=== PATIENT | female | born 1975 | race Caucasian/White ===

== ENCOUNTER 2017-12-12 11:51 | Day surgery (SDC) | payer OTHER ==
[2017-12-12] MEDS: NS 1,000 ML IV (13:48)
[2017-12-12] MEDS ORDERED: fentaNYL 100 MCG/2 ML INJECTION (J3010) As Ordered (14:03)
[2017-12-12] MEDS ORDERED: PROPOFOL 200 MG/20 ML VIAL As Ordered ×4 (15:23→15:26)
== END 2017-12-12 16:20 | disposition home or self-care (01) ==
LOC: M OPP 11:51
DX: K21.9 Gastro-esophageal reflux disease without esophagitis (principal); K29.70 Gastritis, unspecified, without bleeding; Z98.84 Bariatric surgery status; K44.9 Diaphragmatic hernia without obstruction or gangrene; R12 Heartburn; M19.90 Unspecified osteoarthritis, unspecified site; Z88.8 Allergy status to other drugs, medicaments and biological substances; Z88.2 Allergy status to sulfonamides; Z79.899 Other long term (current) drug therapy
CPT/HCPCS: 91035

== ENCOUNTER → 2018-03-03 | Outpatient (CLI) | payer OTHER ==
[~2018-03-03] MED LIST: ESTR2TAB2 PO; NAPR-885 PO; PANT40TA3 PO; VITA100066 PO
[2018-03-03 10:50] LABS: INR 1.1; PROTHROMBIN TIME 14.3 SECONDS (12.1-14.4)
== END ==
LOC: M LAB 09:06
PROVIDERS: ATTEND Internal Medicine Rheumatology
DX: Z51.81 Encounter for therapeutic drug level monitoring (principal); D68.61 Antiphospholipid syndrome; Z79.01 Long term (current) use of anticoagulants

== ENCOUNTER → 2018-03-06 | Outpatient (CLI) | payer OTHER ==
[2018-03-06 15:49] LABS: INR 1.57
== END ==
LOC: M LAB 07:19
PROVIDERS: ATTEND Internal Medicine Rheumatology
DX: Z51.81 Encounter for therapeutic drug level monitoring (principal); Z79.01 Long term (current) use of anticoagulants; D68.61 Antiphospholipid syndrome

== ENCOUNTER → 2018-03-10 | Outpatient (CLI) | payer OTHER ==
[2018-03-10 08:00] LABS: INR 1.53; PROTHROMBIN TIME 18.6 SECONDS (12.1-14.4)
== END ==
LOC: M LAB 07:22
PROVIDERS: ATTEND Internal Medicine Rheumatology
DX: Z51.81 Encounter for therapeutic drug level monitoring (principal); Z79.899 Other long term (current) drug therapy

== ENCOUNTER → 2018-03-13 | Outpatient (CLI) | payer OTHER ==
[2018-03-13 09:17] LABS: INR 2.29; PROTHROMBIN TIME 25.7 SECONDS (12.1-14.4)
== END ==
LOC: M LAB 07:35
PROVIDERS: ATTEND Internal Medicine Rheumatology
DX: D68.61 Antiphospholipid syndrome (principal)

== ENCOUNTER → 2018-03-19 | Outpatient (CLI) | payer OTHER ==
[2018-03-19 11:08] LABS: INR 2.54; PROTHROMBIN TIME 27.9 SECONDS (12.1-14.4)
== END ==
LOC: M LAB 10:32
PROVIDERS: ATTEND Internal Medicine Rheumatology
DX: Z51.81 Encounter for therapeutic drug level monitoring (principal); Z79.01 Long term (current) use of anticoagulants

== ENCOUNTER → 2018-03-26 | Outpatient (CLI) | payer OTHER ==
[2018-03-26 08:19] LABS: INR 2.42; PROTHROMBIN TIME 26.8 SECONDS (12.1-14.4)
== END ==
LOC: M LAB 07:43
PROVIDERS: ATTEND Internal Medicine Rheumatology
DX: D68.61 Antiphospholipid syndrome (principal)

== ENCOUNTER → 2018-04-23 | Outpatient (CLI) | payer OTHER ==
[2018-04-23 08:12] LABS: INR 2.87; PROTHROMBIN TIME 30.7 SECONDS (12.1-14.4)
== END ==
LOC: M LAB 07:34
PROVIDERS: ATTEND Internal Medicine Rheumatology
DX: Z51.81 Encounter for therapeutic drug level monitoring (principal); Z79.01 Long term (current) use of anticoagulants; D68.61 Antiphospholipid syndrome

== ENCOUNTER → 2018-05-14 | Outpatient (CLI) | payer OTHER ==
[2018-05-14 18:06] LABS: INR 2.11; PROTHROMBIN TIME 24.1 SECONDS (12.1-14.4)
== END ==
LOC: M LAB 16:42
PROVIDERS: ATTEND Internal Medicine Rheumatology
DX: Z51.81 Encounter for therapeutic drug level monitoring (principal); Z79.01 Long term (current) use of anticoagulants; D68.61 Antiphospholipid syndrome

== ENCOUNTER → 2018-06-08 | Outpatient (CLI) | payer OTHER ==
[2018-06-08 17:35] LABS: INR 2.15; PROTHROMBIN TIME 24.4 SECONDS (12.1-14.4)
== END ==
LOC: M LAB 16:29
PROVIDERS: ATTEND Internal Medicine Rheumatology
DX: D68.61 Antiphospholipid syndrome (principal); Z51.81 Encounter for therapeutic drug level monitoring; Z79.01 Long term (current) use of anticoagulants

== ENCOUNTER → 2018-07-22 | Outpatient (CLI) | payer OTHER ==
[2018-07-22 18:30] LABS: INR 2.85; PROTHROMBIN TIME 30.5 SECONDS (12.1-14.4)
== END ==
LOC: M LAB 17:31
PROVIDERS: ATTEND Internal Medicine Rheumatology
DX: D68.61 Antiphospholipid syndrome (principal); Z51.81 Encounter for therapeutic drug level monitoring; Z79.01 Long term (current) use of anticoagulants

== ENCOUNTER → 2018-09-11 | Outpatient (CLI) | payer OTHER ==
[2018-09-11 08:36] LABS: INR 1.82; PROTHROMBIN TIME 20.8 SECONDS (11.8-14.0)
== END ==
LOC: M LAB 07:26
PROVIDERS: ATTEND Internal Medicine Rheumatology
DX: Z51.81 Encounter for therapeutic drug level monitoring (principal); Z79.01 Long term (current) use of anticoagulants

== ENCOUNTER → 2018-10-07 | Outpatient (CLI) | payer OTHER ==
[2018-10-07 08:14] LABS: INR 2.98; PROTHROMBIN TIME 30.9 SECONDS (11.8-14.0)
== END ==
LOC: M LAB 07:23
PROVIDERS: ATTEND Internal Medicine Rheumatology
DX: Z51.81 Encounter for therapeutic drug level monitoring (principal); Z79.01 Long term (current) use of anticoagulants

== ENCOUNTER → 2018-11-11 | Outpatient (CLI) | payer OTHER ==
[2018-11-11 15:20] LABS: INR 4.34; PROTHROMBIN TIME 41.7 SECONDS (11.8-14.0)
== END ==
LOC: M LAB 14:16
PROVIDERS: ATTEND Internal Medicine Rheumatology
DX: Z79.899 Other long term (current) drug therapy (principal)

== ENCOUNTER → 2018-11-18 | Outpatient (CLI) | payer OTHER ==
[2018-11-18 17:04] LABS: INR 1.83; PROTHROMBIN TIME 20.9 SECONDS (11.8-14.0)
== END ==
LOC: M LAB 16:24
PROVIDERS: ATTEND Internal Medicine Rheumatology
DX: D68.61 Antiphospholipid syndrome (principal); Z51.81 Encounter for therapeutic drug level monitoring; Z79.01 Long term (current) use of anticoagulants

== ENCOUNTER → 2018-11-25 | Outpatient (CLI) | payer OTHER ==
[2018-11-25 17:51] LABS: INR 2.71; PROTHROMBIN TIME 28.6 SECONDS (11.8-14.0)
== END ==
LOC: M LAB 16:35
PROVIDERS: ATTEND Internal Medicine Rheumatology
DX: D68.61 Antiphospholipid syndrome (principal)

== ENCOUNTER → 2018-12-28 | Outpatient (CLI) | payer OTHER ==
[2018-12-28 18:34] LABS: INR 1.38; PROTHROMBIN TIME 16.7 SECONDS (11.8-14.0)
== END ==
LOC: M LAB 17:08
PROVIDERS: ATTEND Internal Medicine Rheumatology
DX: Z79.01 Long term (current) use of anticoagulants (principal)

== ENCOUNTER → 2019-01-04 | Outpatient (CLI) | payer OTHER ==
[2019-01-04 17:23] LABS: INR 1.94; PROTHROMBIN TIME 21.9 SECONDS (11.8-14.0)
== END ==
LOC: M LAB 16:35
PROVIDERS: ATTEND Internal Medicine Rheumatology
DX: Z79.899 Other long term (current) drug therapy (principal)

== ENCOUNTER → 2019-01-08 | Outpatient (CLI) | payer OTHER ==
--- NOTE | 2019-01-09 08:38 | REP ---
HISTORY: Cough. COMPARISON: None. There is a Mediport device in place. The tip is in the superior vena cava. There is a superior vena cava. There is a subtle patchy opacity in the right upper lobe. The pleural angles are sharp and the heart is not enlarged. The osseous structures are normal. IMPRESSION: Right upper lobe pneumonia. I have no priors for comparison. Electronically Signed by Abimael Rutherford DO 01/09/2019 09:23 A
== END ==
LOC: M LRY 20:01
PROVIDERS: ATTEND Physician Assistant
DX: R05 Cough (principal)
CPT/HCPCS: 71046; G0463

== ENCOUNTER → 2019-01-26 | Outpatient (CLI) | payer OTHER ==
[2019-01-26 13:32] LABS: INR 3.49; PROTHROMBIN TIME 35.1 SECONDS (11.8-14.0)
== END ==
LOC: M LAB 12:38
PROVIDERS: ATTEND Internal Medicine Rheumatology
DX: Z79.899 Other long term (current) drug therapy (principal)

== ENCOUNTER → 2019-02-16 | Outpatient (CLI) | payer OTHER ==
[2019-02-16 07:23] LABS: INR 2.68; PROTHROMBIN TIME 28.4 SECONDS (11.8-14.0)
== END ==
LOC: M LAB 06:51
PROVIDERS: ATTEND Internal Medicine Rheumatology
DX: Z51.81 Encounter for therapeutic drug level monitoring (principal); Z79.01 Long term (current) use of anticoagulants

== ENCOUNTER 2019-03-17 07:19 | Outpatient (CLI) | payer OTHER ==
[~2019-03-17] VITALS: Ht 175.3 cm; Wt 116.4 kg
[2019-03-17] MEDS ORDERED: COUM1TAB17 PO (07:40)
[2019-03-17] MEDS ORDERED: INFL10VL IV (07:40)
[2019-03-17] MEDS ORDERED: PLAQ200T4 PO (07:40)
[2019-03-17] MEDS ORDERED: COUM10TA PO (07:40)
[2019-03-17 08:00] VITALS: BP 151/68
[2019-03-17 08:25] LABS: INR 3.39; PROTHROMBIN TIME 34.2 SECONDS (11.8-14.0)
[2019-03-17] MEDS ORDERED: SODIUM CHLORIDE 0.9% INJ 10 ML SYR IV SCH (09:00)
== END 2019-03-17 08:00 | disposition home or self-care (01) ==
LOC: M INFU 07:19
PROVIDERS: ATTEND Internal Medicine Rheumatology
DX: Z51.81 Encounter for therapeutic drug level monitoring (principal); Z79.01 Long term (current) use of anticoagulants
CPT/HCPCS: 36591; 85610; J1642

== ENCOUNTER 2019-05-04 07:25 | Outpatient (CLI) | payer OTHER ==
[~2019-05-04] VITALS: Ht 175.3 cm; Wt 116.0 kg
[~2019-05-04 07:25] MED LIST changes: +COUM10TA PO; +COUM1TAB17 PO; +INFL10VL IV; +PLAQ200T4 PO
[2019-05-04 07:37] VITALS: BP 152/90
[2019-05-04 08:19] LABS: INR 2.54; PROTHROMBIN TIME 27.2 SECONDS (11.8-14.0)
[2019-05-04] MEDS ORDERED: SODIUM CHLORIDE 0.9% INJ 10 ML SYR IV SCH (09:00)
== END 2019-05-04 08:00 | disposition home or self-care (01) ==
LOC: M INFU 07:25
PROVIDERS: ATTEND Internal Medicine Rheumatology
DX: Z51.81 Encounter for therapeutic drug level monitoring (principal); Z79.01 Long term (current) use of anticoagulants; Z88.2 Allergy status to sulfonamides; Z88.8 Allergy status to other drugs, medicaments and biological substances
CPT/HCPCS: 36591; 85610; 96523; J1642

== ENCOUNTER 2019-05-28 08:26 | Outpatient (CLI) | payer OTHER ==
[~2019-05-28] VITALS: Ht 175.3 cm; Wt 116.4 kg
[~2019-05-28 08:26] MED LIST changes: +SODIUM CHLORIDE 0.9% INJ 10 ML SYR IV ONE; +SODIUM CHLORIDE 0.9% INJ 10 ML SYR IV PRN
[2019-05-28 08:30] VITALS: BP 119/62
[2019-05-28 09:18] LABS: INR 2.66; PROTHROMBIN TIME 28.2 SECONDS (11.8-14.0)
== END 2019-05-28 08:50 | disposition home or self-care (01) ==
LOC: M INFU 08:26
PROVIDERS: ATTEND Internal Medicine Rheumatology
DX: D68.61 Antiphospholipid syndrome (principal); Z79.01 Long term (current) use of anticoagulants; Z51.81 Encounter for therapeutic drug level monitoring
CPT/HCPCS: 36591; 85610; 96523; J1642

== ENCOUNTER 2019-06-14 13:44 | Outpatient (CLI) | payer OTHER ==
[~2019-06-14] VITALS: Ht 175.3 cm; Wt 116.4 kg
[~2019-06-14 13:44] MED LIST changes: -SODIUM CHLORIDE 0.9% INJ 10 ML SYR IV ONE; -SODIUM CHLORIDE 0.9% INJ 10 ML SYR IV PRN; +SODIUM CHLORIDE 0.9% INJ 10 ML SYR IV SCH
[2019-06-14 13:50] VITALS: BP 160/88
[2019-06-14 14:38] LABS: INR 2.23; PROTHROMBIN TIME 24.5 SECONDS (11.8-14.0)
== END 2019-06-14 14:20 | disposition home or self-care (01) ==
LOC: M INFU 13:44
PROVIDERS: ATTEND Internal Medicine Rheumatology
DX: Z79.01 Long term (current) use of anticoagulants (principal); D68.61 Antiphospholipid syndrome
CPT/HCPCS: 36591; 85610; 96523; J1642

== ENCOUNTER 2019-07-14 07:27 | Outpatient (CLI) | payer OTHER ==
[~2019-07-14] VITALS: Ht 162.6 cm; Wt 116.4 kg
[~2019-07-14 07:27] MED LIST changes: -SODIUM CHLORIDE 0.9% INJ 10 ML SYR IV SCH
[2019-07-14] MEDS ORDERED: SODIUM CHLORIDE 0.9% INJ 10 ML SYR IV PRN (07:30)
[2019-07-14 07:37] VITALS: BP 134/80
[2019-07-14 08:16] LABS: INR 1.27; PROTHROMBIN TIME 15.6 SECONDS (11.8-14.0)
[2019-07-14] MEDS ORDERED: SODIUM CHLORIDE 0.9% INJ 10 ML SYR IV SCH (09:00)
== END 2019-07-14 07:50 | disposition home or self-care (01) ==
LOC: M INFU 07:27
PROVIDERS: ATTEND Internal Medicine Rheumatology
DX: D68.61 Antiphospholipid syndrome (principal); Z79.01 Long term (current) use of anticoagulants
CPT/HCPCS: 36591; 85610; J1642

== ENCOUNTER 2019-07-27 07:15 | Outpatient (CLI) | payer OTHER ==
[~2019-07-27] VITALS: Ht 162.6 cm; Wt 116.4 kg
[2019-07-27 07:28] VITALS: BP 114/86
[2019-07-27 08:18] LABS: INR 2.48; PROTHROMBIN TIME 26.7 SECONDS (11.8-14.0)
[2019-07-27] MEDS ORDERED: SODIUM CHLORIDE 0.9% INJ 10 ML SYR IV SCH (09:00)
== END 2019-07-27 07:45 | disposition home or self-care (01) ==
LOC: M INFU 07:15
PROVIDERS: ATTEND Internal Medicine Rheumatology
DX: Z79.01 Long term (current) use of anticoagulants (principal); D68.61 Antiphospholipid syndrome

== ENCOUNTER 2019-08-31 07:17 | Outpatient (CLI) | payer OTHER ==
[~2019-08-31] VITALS: Ht 162.6 cm; Wt 116.4 kg
[~2019-08-31 07:17] MED LIST changes: +PANT40TA29 PO; -PANT40TA3 PO
[2019-08-31] MEDS ORDERED: SODIUM CHLORIDE 0.9% INJ 10 ML SYR IV PRN (07:30)
[2019-08-31 08:18] VITALS: BP 123/72
[2019-08-31 08:33] LABS: INR 2.44; PROTHROMBIN TIME 26.3 SECONDS (11.8-14.0)
[2019-08-31] MEDS ORDERED: SODIUM CHLORIDE 0.9% INJ 10 ML SYR IV SCH (09:00)
== END 2019-08-31 08:00 | disposition home or self-care (01) ==
LOC: M INFU 07:17
PROVIDERS: ATTEND Internal Medicine Rheumatology
DX: D68.61 Antiphospholipid syndrome (principal); Z51.81 Encounter for therapeutic drug level monitoring; Z79.01 Long term (current) use of anticoagulants
CPT/HCPCS: 36591; 85610; J1642

== ENCOUNTER 2019-10-07 16:31 | Outpatient (CLI) | payer OTHER ==
[~2019-10-07] VITALS: Ht 162.6 cm; Wt 116.0 kg
[2019-10-07 16:35] VITALS: BP 168/86
[2019-10-07 18:14] LABS: INR 2.97; PROTHROMBIN TIME 31.6 SECONDS (11.8-14.0)
[2019-10-08] MEDS ORDERED: SODIUM CHLORIDE 0.9% INJ 10 ML SYR IV SCH (09:00)
== END 2019-10-07 17:10 | disposition home or self-care (01) ==
LOC: M INFU 16:31
PROVIDERS: ATTEND Internal Medicine Rheumatology
DX: D68.61 Antiphospholipid syndrome (principal); Z51.81 Encounter for therapeutic drug level monitoring; Z79.01 Long term (current) use of anticoagulants

== ENCOUNTER 2019-10-21 15:20 | Outpatient (CLI) | payer OTHER ==
[~2019-10-21] VITALS: Ht 162.6 cm; Wt 116.4 kg
[~2019-10-21 15:20] MED LIST changes: +SODIUM CHLORIDE 0.9% INJ 10 ML SYR IV PRN; +SODIUM CHLORIDE 0.9% INJ 10 ML SYR IV SCH
[2019-10-21 15:28] VITALS: BP 157/74
[2019-10-21 16:58] LABS: INR 2.26; PROTHROMBIN TIME 25.5 SECONDS (11.8-14.0)
== END 2019-10-21 16:25 | disposition home or self-care (01) ==
LOC: M INFU 15:20
PROVIDERS: ATTEND Internal Medicine Rheumatology
DX: D68.61 Antiphospholipid syndrome (principal); Z79.01 Long term (current) use of anticoagulants; Z51.81 Encounter for therapeutic drug level monitoring

== ENCOUNTER → 2019-11-22 | Outpatient (CLI) | payer OTHER ==
[~2019-11-22] MED LIST changes: -SODIUM CHLORIDE 0.9% INJ 10 ML SYR IV PRN; -SODIUM CHLORIDE 0.9% INJ 10 ML SYR IV SCH
[2019-11-22 09:30] LABS: INR 2.24; PROTHROMBIN TIME 25.3 SECONDS (12.5-14.3)
== END ==
LOC: M LAB 08:39
PROVIDERS: ATTEND Internal Medicine Rheumatology
DX: D68.51 Activated protein C resistance (principal); Z79.01 Long term (current) use of anticoagulants

== ENCOUNTER → 2019-12-30 | Outpatient (CLI) | payer OTHER ==
[2019-12-30 15:25] LABS: INR 1.38; PROTHROMBIN TIME 17.3 SECONDS (12.5-14.3)
== END ==
LOC: M LAB 14:45
PROVIDERS: ATTEND Internal Medicine Rheumatology
DX: Z51.81 Encounter for therapeutic drug level monitoring (principal); Z79.01 Long term (current) use of anticoagulants

== ENCOUNTER → 2020-01-18 | Outpatient (CLI) | payer OTHER ==
[2020-01-18 10:48] LABS: INR 1.98; PROTHROMBIN TIME 22.9 SECONDS (12.5-14.3)
== END ==
LOC: M LAB 10:00
PROVIDERS: ATTEND Internal Medicine Rheumatology
DX: Z51.81 Encounter for therapeutic drug level monitoring (principal); Z79.01 Long term (current) use of anticoagulants

== ENCOUNTER 2020-02-05 16:16 | Emergency (ER) | payer OTHER ==
[~2020-02-05] VITALS: Ht 175.3 cm; Wt 122.7 kg
[2020-02-05 16:57] LABS: BASO % 0.3 % (0.0-1.0); EOS % 0.3 % (0.0-3.0); HEMATOCRIT 40.4 % (36.0-47.0); HEMOGLOBIN 12.9 g/dl (12.0-15.5); LYMPH # 2.4 10^3/uL (1.5-5.0); LYMPH % 33.9 % (24.0-44.0); MEAN CORPUSCULAR HEMOGLOBIN 27.9 pg (27.0-33.0); MEAN CORPUSCULAR HGB CONC 31.9 g/dl (32.0-36.5); MEAN CORPUSCULAR VOLUME 87.4 fl (80.0-96.0); MONO # 0.5 10^3/uL (0.0-0.8); MONO % 6.9 % (0.0-5.0); NEUTROPHILS # 4.1 10^3/uL (1.5-8.5); NEUTROPHILS % 57.1 % (36.0-66.0); PLATELET COUNT, AUTOMATED 227 10^3/uL (150-450); RED BLOOD COUNT 4.62 10^6/uL (4.00-5.40); WHITE BLOOD COUNT 7.1 10^3/uL (4.0-10.0)
--- NOTE | 2020-02-05 17:07 | REP ---
INDICATION: covid COMPARISON: 01/08/2019 TECHNIQUE: Portable AP view of the chest FINDINGS: [id number]-[id number]-Qtso with tip in the SVC/right atrium. The mediastinum and cardiac silhouette are stable and within normal limits for portable technique. The lung romero are clear without acute consolidation, effusion, or pneumothorax. Skeletal structures are intact. IMPRESSION: No obvious focal consolidation. <Electronically signed by Brandin Leigh > 02/05/20 [id number]
[2020-02-05 17:22] LABS: INR 2.81; PROTHROMBIN TIME 30.2 SECONDS (12.5-14.3)
[2020-02-05 17:24] LABS: BLOOD UREA NITROGEN 10 MG/DL (7-18); CALCIUM LEVEL 8.5 MG/DL (8.5-10.1); CARBON DIOXIDE LEVEL 28 MEQ/L (21-32); CHLORIDE LEVEL 106 MEQ/L (98-107); CREATININE FOR GFR 0.75 MG/DL (0.55-1.30); GLOMERULAR FILTRATION RATE > 60.0 (>58); GLUCOSE, FASTING 106 MG/DL (70-100); PARTIAL THROMBOPLASTIN TIME 77.7 SECONDS (24.2-38.5); POTASSIUM SERUM 3.8 MEQ/L (3.5-5.1); SODIUM LEVEL 140 MEQ/L (136-145)
[2020-02-05 17:25] LABS: ALBUMIN 3.2 GM/DL (3.2-5.2); ALT/SGPT 26 U/L (12-78); BILIRUBIN,TOTAL 0.2 MG/DL (0.2-1.0); C REACTIVE PROTEIN QUANTITATIV 4.69 MG/DL (0.00-0.30); CK-MB VALUE MASS < 1.0 NG/ML (<3.6); CPK CREATINE PHOSPHOKINASE 89 U/L (26-192); LDH LACTATE DEHYDROGENASE 208 U/L (84-246); MB/CK RELATIVE INDEX 1.12 (< OR =4); TOTAL PROTEIN 7.7 GM/DL (6.4-8.2); TROPONIN I < 0.02 NG/ML (< 0.10)
[2020-02-05 17:29] LABS: D-DIMER QUANT < 270 ng/ml (<500)
[2020-02-05] MEDS ORDERED: HYDR200T3 PO (18:24)
[2020-02-05] MEDS ORDERED: BENZ-18 PO (18:24)
[2020-02-05] MEDS ORDERED: INFL10VL IV (18:24)
[2020-02-05] MEDS ORDERED: IRON INFUSION IV (18:24)
[2020-02-05] MEDS ORDERED: METH2.5T48 PO (18:24)
[2020-02-05] MEDS ORDERED: D31000TA2 PO (18:24)
[2020-02-05] MEDS ORDERED: WARF-23 PO (18:24)
[2020-02-05] MEDS ORDERED: FOLI1TAB11 PO (18:24)
[2020-02-05] MEDS ORDERED: NS 1,000 ML IV SCH (19:38)
[2020-02-05] MEDS ORDERED: methylPREDNISolone 125MG 2ML VIAL IV PRN (19:45)
[2020-02-05] MEDS ORDERED: diphenhydrAMINE 50MG/ML VIAL (J1200) IV PRN (19:45)
[2020-02-05] MEDS ORDERED: ALBUTEROL SULFATE 2.5 MG/0.5 ML INH NEB SOLN INH PRN (19:45)
[2020-02-05] MEDS ORDERED: ALBUTEROL 90 MCG/ACT 8GM HFA INHALER INH PRN (19:45)
[2020-02-05] MEDS ORDERED: EPINEPHrine INJ 1 MG/ML 1ML AMP IM PRN (19:45)
[2020-02-05] MEDS ORDERED: BAMLANIVIMAB 700 MG in NS 180 ML IV ONE (19:45)
--- NOTE | 2020-02-05 19:58 | HPEPDOC ---
[facility] Medical History & Physical Date of Admission Feb 05, 2020 Date of Service: Feb 05, 2020 Other Provider Franci Crow MD Attending Physician: YAZAN WATKINS MD History and Physical TIME OF SERVICE: 8:45 PM CHIEF COMPLAINT: Pain with breathing HISTORY OF PRESENT ILLNESS: This 44-year-old female took her son to the ER and Friday because he had upper respiratory tract symptoms. He was diagnosed with COVID 19. The rest of the family was tested and also found to be positive for COVID 19. Over the next couple of days she developed cough, nausea, headaches, lethargy, and had a fever as high as 102 on . She came to the hospital today primarily because he developed pain in her chest while breathing. REVIEW OF SYSTEMS: 12 point review of systems negative except as listed in HPI PAST MEDICAL/ SURGICAL HISTORY: Rheumatoid arthritis. Antiphospholipid antibody syndrome. GERD, managed with Stewart fundoplication SOCIAL HISTORY: She doesn't smoke, drink or use recreational drugs FAMILY HISTORY: N/A ALLERGIES: Please see below. HOME MEDICATIONS: Please see below. PHYSICAL EXAMINATION: VITAL SIGNS: Please see below. GEN: well-nourished / well developed/ NAD HEENT: lips acyanotic /mucus membranes moist and pink CVS: RRR/NMRG/ radial pulses intact LUNGS: able to speak full sentences without stopping to take a breath / ocassionaly coughing / lungs are clear to auscultation bilaterally on room air ABDOMEN: Contour (obese) MSK/EXTREMITIES: NCAT NEURO: speech is not dysarthric PSYCH: alert and oriented to person place and time/ able to understand and follow all commands LABORATORY DATA: See below. IMAGING: chest xray "No obvious focal consolidation" MICROBIOLOGY: Please see below. ASSESSMENT: Ms. Davalos is a 44-year-old with a history of rheumatoid arthritis, GERD, and antiphospholipid antibody syndrome who was diagnosed with Covid 19 and is here for antibody fusion. PLAN: 1. COVID 19 Her CBC, CMP and coags are unremarkable She is not hypoxic Her qCSI score 0, which puts her in the low risk category Plan: She will remain on a patient status and and receive bamlanivimab / other medications, per the Outpatient Covid orders have been ordered DVT PROPHYLAXIS: N/A DISPOSITION: home after completion of infusion Vital Signs Vital Signs Date Time Temp Pulse Resp B/P (MAP) Pulse Ox O2 Delivery O2 Flow Rate FiO2 02/05/20 19:45 89 18 100 Room Air 02/05/20 19:30 141/72 (95) 02/05/20 16:16 97.8 Laboratory Data Labs 24H Laboratory Tests 2 02/05/20 16:43: Immature Granulocyte % (Auto) 1.5, Neutrophils (%) (Auto) 57.1, Lymphocytes (%) (Auto) 33.9, Monocytes (%) (Auto) 6.9H, Eosinophils (%) (Auto) 0.3, Basophils (%) (Auto) 0.3, Neutrophils # (Auto) 4.1, Lymphocytes # (Auto) 2.4, Monocytes # (Auto) 0.5, Eosinophils # (Auto) 0.0, Basophils # (Auto) 0.0, Nucleated Red Blood Cells % (auto) 0.0, Prothrombin Time 30.2H, Prothromb Time International Ratio 2.81, Activated Partial Thromboplast Time 77.7H, D-Dimer, Quantitative < 270, Anion Gap 6L, Glomerular Filtration Rate > 60.0, Lactic Acid Level 0.9, Calcium Level 8.5, Total Bilirubin 0.2, Aspartate Amino Transf (AST/SGOT) 19, Alanine Aminotransferase (ALT/SGPT) 26, Alkaline Phosphatase 110, Lactate Dehydrogenase 208, Total Creatine Kinase 89, Creatine Kinase MB < 1.0, Creatine Kinase MB Relative Index 1.12, Troponin I < 0.02, C-Reactive Protein, Quantitative 4.69H, Total Protein 7.7, Albumin 3.2, Albumin/Globulin Ratio 0.7L CBC/BMP Laboratory Tests 02/05/20 16:43 Home Medications Scheduled Cholecalciferol (Vitamin D3) (Vitamin D3) 1,000 Unit Tablet, 1,000 UNITS PO QHS Estradiol (Estradiol) 2 Mg Tab, 2 MG PO QHS Folic Acid (Folic Acid) 1 Mg Tablet, 2 MG PO QHS Hydroxychloroquine Sulfate (Hydroxychloroquine Sulfate) 200 Mg Tablet, 400 MG PO QHS Infliximab Injection (Remicade) 100 Mg Vial, 1 DOSE IV ASDIRECTED EVERY 6 WEEKS Methotrexate Sodium (Methotrexate) 2.5 Mg Tablet, 10 MG PO QWEEK FRIDAYS Pantoprazole Sodium (Pantoprazole Sodium) 40 Mg Tab, 40 MG PO QHS Warfarin Sodium (Warfarin Sodium) 5 Mg Tablet, 10 MG PO QHS [Iron Infusion] , 1 DOSE IV ASDIRECTED EVERY 6 WEEKS Scheduled PRN Benzonatate (Benzonatate) 100 Mg Capsule, 200 MG PO TID PRN for COUGH Allergies Coded Allergies: Sulfa (Sulfonamide Antibiotics) (Verified Allergy, Mild, HIVES, 03/17/19) esomeprazole (Verified Adverse Reaction, Mild, MIGRAINES, 03/17/19) methotrexate (Verified Adverse Reaction, Mild, MOUTH SORES, 03/17/19) YAZAN WATKINS MD Feb 05, 2020 19:58
[2020-02-05 21:30] VITALS: BP 132/68
--- NOTE | 2020-02-06 12:23 | ECGEPIP ---
[facility] - ED Test Date: 2020-02-05 Pat Name: JUANA KING Department: Room: - Gender: Female Outside Sales Representative: : 1975 Requested By: CANDICE Ferrara Order Number: [id number] Reading MD: Emily Patel Measurements Intervals Edwards Rate: 86 P: 54 AR: 157 QRS: -10 QRSD: 85 T: 25 QT: 354 QTc: 424 Interpretive Statements SINUS RHYTHM NO PRIOR Electronically Signed on 02-06-2020 12:23:31 EST by Emily Patel
== END 2020-02-05 21:41 | disposition still patient (30) ==
LOC: M ED 16:16 → ENRESERV 21:09 → M ED 21:41
DX: U07.1 COVID-19 (principal); Z88.1 Allergy status to other antibiotic agents; Z88.2 Allergy status to sulfonamides; Z88.8 Allergy status to other drugs, medicaments and biological substances

== ENCOUNTER 2020-02-05 22:10 | Outpatient (CLI) | payer OTHER ==
[~2020-02-05] VITALS: Ht 175.3 cm; Wt 126.2 kg
[~2020-02-05 22:10] MED LIST changes: +BENZ-18 PO; +D31000TA2 PO; +FOLI1TAB11 PO; +HYDR200T3 PO; +IRON INFUSION IV; +METH2.5T48 PO; +WARF-23 PO; +WARFARIN SOD 5MG TAB PO ONE
[2020-02-05 22:17] VITALS: BP 142/80
--- NOTE | 2020-02-05 22:19 | HPEPDOC ---
[facility] Medical History & Physical Date of Admission Feb 05, 2020 Date of Service: Feb 05, 2020 Other Provider Franci Crow MD Attending Physician: YAZAN WATKINS MD History and Physical TIME OF SERVICE: 8:45 PM CHIEF COMPLAINT: Pain with breathing HISTORY OF PRESENT ILLNESS: This 44-year-old female took her son to the ER and Friday because he had upper respiratory tract symptoms. He was diagnosed with COVID 19. The rest of the family was tested and also found to be positive for COVID 19. Over the next couple of days she developed cough, nausea, headaches, lethargy, and had a fever as high as 102 on . She came to the hospital today primarily because he developed pain in her chest while breathing. REVIEW OF SYSTEMS: 12 point review of systems negative except as listed in HPI PAST MEDICAL/ SURGICAL HISTORY: Rheumatoid arthritis. Antiphospholipid antibody syndrome. GERD, managed with Stewart fundoplication SOCIAL HISTORY: She doesn't smoke, drink or use recreational drugs FAMILY HISTORY: N/A ALLERGIES: Please see below. HOME MEDICATIONS: Please see below. PHYSICAL EXAMINATION: VITAL SIGNS: Please see below. GEN: well-nourished / well developed/ NAD HEENT: lips acyanotic /mucus membranes moist and pink CVS: RRR/NMRG/ radial pulses intact LUNGS: able to speak full sentences without stopping to take a breath / ocassionaly coughing / lungs are clear to auscultation bilaterally on room air ABDOMEN: Contour (obese) MSK/EXTREMITIES: NCAT NEURO: speech is not dysarthric PSYCH: alert and oriented to person place and time/ able to understand and follow all commands LABORATORY DATA: Labs 24H Laboratory Tests 2 02/05/20 16:43: Immature Granulocyte % (Auto) 1.5, Neutrophils (%) (Auto) 57.1, Lymphocytes (%) (Auto) 33.9, Monocytes (%) (Auto) 6.9H, Eosinophils (%) (Auto) 0.3, Basophils (%) (Auto) 0.3, Neutrophils # (Auto) 4.1, Lymphocytes # (Auto) 2.4, Monocytes # (Auto) 0.5, Eosinophils # (Auto) 0.0, Basophils # (Auto) 0.0, Nucleated Red Blood Cells % (auto) 0.0, Prothrombin Time 30.2H, Prothromb Time International Ratio 2.81, Activated Partial Thromboplast Time 77.7H, D-Dimer, Quantitative < 270, Anion Gap 6L, Glomerular Filtration Rate > 60.0, Lactic Acid Level 0.9, Calcium Level 8.5, Total Bilirubin 0.2, Aspartate Amino Transf (AST/SGOT) 19, Alanine Aminotransferase (ALT/SGPT) 26, Alkaline Phosphatase 110, Lactate Dehydrogenase 208, Total Creatine Kinase 89, Creatine Kinase MB < 1.0, Creatine Kinase MB Relative Index 1.12, Troponin I < 0.02, C-Reactive Protein, August titative 4.69H, Total Protein 7.7, Albumin 3.2, Albumin/Globulin Ratio 0.7L CBC/BMP Laboratory Tests 02/05/20 16:43 IMAGING: chest xray "No obvious focal consolidation" MICROBIOLOGY: Please see below. ASSESSMENT: Ms. Davalos is a 44-year-old with a history of rheumatoid arthritis, GERD, and antiphospholipid antibody syndrome who was diagnosed with Covid 19 and is here for antibody fusion. PLAN: 1. COVID 19 Her CBC, CMP and coags are unremarkable She is not hypoxic Her qCSI score 0, which puts her in the low risk category Plan: She will remain on a patient status and and receive bamlanivimab / other medications, per the Outpatient Covid orders have been ordered DVT PROPHYLAXIS: N/A DISPOSITION: home after completion of infusion Home Medications Scheduled Cholecalciferol (Vitamin D3) (Vitamin D3) 1,000 Unit Tablet, 1,000 UNITS PO QHS Estradiol (Estradiol) 2 Mg Tab, 2 MG PO QHS Folic Acid (Folic Acid) 1 Mg Tablet, 2 MG PO QHS Hydroxychloroquine Sulfate (Hydroxychloroquine Sulfate) 200 Mg Tablet, 400 MG PO QHS Infliximab Injection (Remicade) 100 Mg Vial, 1 DOSE IV ASDIRECTED EVERY 6 WEEKS Methotrexate Sodium (Methotrexate) 2.5 Mg Tablet, 10 MG PO QWEEK [place] Pantoprazole Sodium (Pantoprazole Sodium) 40 Mg Tab, 40 MG PO QHS Warfarin Sodium (Warfarin Sodium) 5 Mg Tablet, 10 MG PO QHS [Iron Infusion] , 1 DOSE IV ASDIRECTED EVERY 6 WEEKS Scheduled PRN Benzonatate (Benzonatate) 100 Mg Capsule, 200 MG PO TID PRN for COUGH Allergies Coded Allergies: Sulfa (Sulfonamide Antibiotics) (Verified Allergy, Mild, HIVES, 03/17/19) esomeprazole (Verified Adverse Reaction, Mild, MIGRAINES, 03/17/19) methotrexate (Verified Adverse Reaction, Mild, MOUTH SORES, 03/17/19) A-FIB/CHADSVASC A-FIB History Current/History of A-Fib/PAF?: No Current PO Anticoag Therapy: No YAZAN WATKINS MD Feb 05, 2020 22:19
[2020-02-05] MEDS ORDERED: NS 1,000 ML IV SCH (22:21)
[2020-02-05 22:29] VITALS: BP 135/67
[2020-02-05] MEDS ORDERED: ALBUTEROL SULFATE 2.5 MG/0.5 ML INH NEB SOLN INH PRN (22:30)
[2020-02-05] MEDS ORDERED: diphenhydrAMINE 50MG/ML VIAL (J1200) IV PRN (22:30)
[2020-02-05] MEDS ORDERED: EPINEPHrine INJ 1 MG/ML 1ML AMP IM PRN (22:30)
[2020-02-05] MEDS ORDERED: ALBUTEROL 90 MCG/ACT 8GM HFA INHALER INH PRN (22:30)
[2020-02-05] MEDS ORDERED: methylPREDNISolone 125MG 2ML VIAL IV PRN (22:30)
[2020-02-05] MEDS ORDERED: ACETAMINOPHEN 650MG ER TAB (TYLENOL ARTHRITIS) PO PRN (22:45)
[2020-02-05] MEDS ORDERED: BAMLANIVIMAB 700 MG in NS 180 ML IV ONE (23:00)
[2020-02-05 23:29] VITALS: BP 135/67
[2020-02-05 23:33] VITALS: BP 135/67
[2020-02-06] VITALS: BP 135/76
[2020-02-06 00:38] VITALS: BP 135/75
[2020-02-06 01:02] VITALS: BP 133/78
[2020-02-06 01:40] VITALS: BP 133/71
== END 2020-02-06 02:14 | disposition home or self-care (01) ==
LOC: M OPCLI4 22:10 → UNDOADMOB 22:10 → M 4MAIN 22:10 → M OPCLI4 02-06 02:14 → UNDODISOB 02-06 02:14
PROVIDERS: ADMIT Internal Medicine; ATTEND Internal Medicine
DX: U07.1 COVID-19 (principal); R07.9 Chest pain, unspecified; R50.9 Fever, unspecified; D68.61 Antiphospholipid syndrome; K21.9 Gastro-esophageal reflux disease without esophagitis; M06.09 Rheumatoid arthritis without rheumatoid factor, multiple sites; Z79.01 Long term (current) use of anticoagulants; Z79.899 Other long term (current) drug therapy; Z88.2 Allergy status to sulfonamides; Z88.8 Allergy status to other drugs, medicaments and biological substances

== ENCOUNTER → 2020-02-23 | Outpatient (CLI) | payer OTHER ==
[~2020-02-23] MED LIST changes: -WARFARIN SOD 5MG TAB PO ONE
[2020-02-23 18:27] LABS: INR 1.8; PROTHROMBIN TIME 21.3 SECONDS (12.5-14.3)
== END ==
LOC: M LAB 17:29
PROVIDERS: ATTEND Internal Medicine Rheumatology
DX: Z51.81 Encounter for therapeutic drug level monitoring (principal); Z79.01 Long term (current) use of anticoagulants

== ENCOUNTER → 2020-05-01 | Outpatient (CLI) | payer OTHER ==
[2020-05-01 17:50] LABS: INR 2.27; PROTHROMBIN TIME 25.5 SECONDS (12.5-14.3)
== END ==
LOC: M LAB 16:57
PROVIDERS: ATTEND Internal Medicine Rheumatology
DX: Z51.81 Encounter for therapeutic drug level monitoring (principal); Z79.01 Long term (current) use of anticoagulants; D68.61 Antiphospholipid syndrome

== ENCOUNTER → 2020-06-05 | Outpatient (CLI) | payer OTHER ==
[2020-06-05 17:15] LABS: PROTHROMBIN TIME 23.1 SECONDS (12.5-14.3)
== END ==
LOC: M LAB 16:03
PROVIDERS: ATTEND Internal Medicine Rheumatology
DX: Z79.899 Other long term (current) drug therapy (principal)